=== PATIENT | male | born 1970 | race African-American/Black ===

== ENCOUNTER 2019-05-13 17:06 | Emergency (ER) | payer MEDICAID, OTHER ==
[~2019-05-13] VITALS: Ht 602 cm; Wt 74.8 kg
--- NOTE | 2019-05-13 18:15 | NUR ---
Dr. Torres at bedside for MSE
--- NOTE | 2019-05-13 18:26 | NUR ---
Xray at bedside
[2019-05-13 19:07] VITALS: BP 118/76
--- NOTE | 2019-05-13 19:07 | NUR ---
Patient discharged to home in stable conditon. Written and verbal after care instructions given. Patient verbalizes understanding of instructions. Patient ambulating with steady gait.
== END 2019-05-13 19:07 | disposition home or self-care (01) ==
LOC: ER 17:09
DX: M20.011 Mallet finger of right finger(s) (principal)
CPT/HCPCS: 73140; A4663